=== PATIENT | male | born 1930 | race Caucasian/White ===

== ENCOUNTER 2016-09-19 16:00 | Emergency (ER) | payer MEDICARE, BC ==
[2016-09-19 17:00] LABS: BASOPHILS % (AUTO) 1 % (0-3); EOSINOPHILS % (AUTO) 2 % (0-9); HEMATOCRIT 32 % (39-53); MEAN CORPUSCULAR HGB CONC 32.4 gm/dl (32.0-36.0); MEAN CORPUSCULAR VOLUME 96 fL (80-100); MONOCYTES % (AUTO) 13.9 % (0-12); NEUTROPHILS % (AUTO) 64.1 % (37-80)
[2016-09-19 17:18] LABS: ALBUMIN 2.7 gm/dl (3.4-5.0)
[2016-09-19 17:23] VITALS: TEMP 98.2
[2016-09-19] MEDS ORDERED: FUROSEMIDE 100 MG SOL IV ONE (18:29)
[2016-09-19] MEDS ORDERED: FUROSEMIDE 20mg SOL ONE (18:30)
[2016-09-19] MEDS ORDERED: FUROSEMIDE 40 MG SOL ONE (18:30)
[2016-09-19] MEDS ORDERED: METOLAZONE 2.5 MG TAB PO SCH (18:30)
[2016-09-19 19:21] VITALS: BP 147/89; PULSE 68; RESP 18; O2SAT 98
== END 2016-09-19 19:18 | disposition short-term general hospital (02) | DRG 293 ==
LOC: ED 16:00
DX: I50.9 Heart failure, unspecified (principal); R06.02 Shortness of breath
CPT/HCPCS: 71010; 80053; 83880; 84484; 85025; 93005; 99285; J1940

== ENCOUNTER 2017-07-01 18:25 | Emergency (ER) | payer MEDICARE, BC ==
[2017-07-01 18:38] VITALS: BP 129/62; TEMP 98.6
[2017-07-01] MEDS ORDERED: ALBUTEROL/IPRATROPIUM 1 VIAL SOL ONE (18:47)
[2017-07-01] MEDS: ACETAMINOPHEN 325 MG PO ONE (18:50)
[2017-07-01] MEDS: ALBUTEROL NEB SOL 2.5MG/3ML 1 VIAL SOL NEB ONE (18:50)
[2017-07-01] MEDS: ALBUTEROL/IPRATROPIUM 1 VIAL SOL INH ONE (18:51)
[2017-07-01] MEDS ORDERED: SODIUM CHLORIDE 0.9% FLUSH 10 ML SOL IV PRN (18:51)
[2017-07-01] MEDS ORDERED: ACETAMINOPHEN 325 MG ONE (18:51)
[2017-07-01] MEDS: SODIUM CHLORIDE 0.9% 500 ML 500 ML IV ONE (18:52)
[2017-07-01 19:03] VITALS: PULSE 77; RESP 20; O2SAT 96
== END 2017-07-01 19:28 | disposition home or self-care (01) | DRG 203 ==
LOC: ED 18:25
DX: J45.909 Unspecified asthma, uncomplicated (principal)
CPT/HCPCS: 71045; 99282

== ENCOUNTER 2017-07-21 03:58 | Emergency (ER) | payer MEDICARE, BC ==
[2017-07-21 04:11] VITALS: TEMP 99.2
[2017-07-21] MEDS ORDERED: SODIUM CHLORIDE 0.9% FLUSH 10 ML SOL IV PRN (04:17)
[2017-07-21 04:22] LABS: BASOPHILS % (AUTO) 0 % (0-3); EOSINOPHILS % (AUTO) 2 % (0-9); HEMATOCRIT 31 % (39-53); HEMOGLOBIN 10.8 gm/dl (13.5-17.7); LYMPHOCYTES % (AUTO) 20.3 % (10-50); MEAN CORPUSCULAR HEMOGLOBIN 33.6 pg (27.0-32.0); MEAN CORPUSCULAR HGB CONC 35.1 gm/dl (32.0-36.0); MEAN CORPUSCULAR VOLUME 96 fL (80-100); MONOCYTES % (AUTO) 12.2 % (0-12); NEUTROPHILS % (AUTO) 65.5 % (37-80)
[2017-07-21 04:41] LABS: ALBUMIN 2.6 gm/dl (3.4-5.0); BILIRUBIN,TOTAL 0.6 mg/dl (0.2-1.0); CALCIUM 7.7 mg/dl (8.5-10.1); CARBON DIOXIDE 28.8 mEq/L (21-32); CREATININE 4.85 mg/dl (0.80-1.30); POTASSIUM 4.2 mMol/L (3.5-5.1); TOTAL PROTEIN 5.5 gm/dl (6.4-8.2)
[2017-07-21 04:44] VITALS: O2SAT 99
[2017-07-21 04:44] LABS: TROP I 0.061 ng/ml (0.000-0.056)
[2017-07-21 04:47] LABS: INR 1.02 (0.86-1.12)
[2017-07-21 06:30] VITALS: BP 128/84; PULSE 82; RESP 22
== END 2017-07-21 06:05 | disposition short-term general hospital (02) | DRG 310 ==
LOC: ED 03:58
DX: I48.91 Unspecified atrial fibrillation (principal); R06.02 Shortness of breath; R12 Heartburn
CPT/HCPCS: 36415; 71045; 80053; 82550; 83880; 84484; 85025; 85610; 85730; 93005; 99285; 99291

== ENCOUNTER 2017-08-27 13:07 | Emergency (ER) | payer MEDICARE, BC ==
[2017-08-27] MEDS ORDERED: NITROGLYCERIN 0.4 MG TAB SL PRN (13:11)
[2017-08-27] MEDS ORDERED: ASPIRIN 81 MG CHEWABLE CTB PO ONE (13:11)
[2017-08-27] MEDS ORDERED: NITROGLYCERIN 0.4 MG TAB SL ONE (13:20)
[2017-08-27 13:28] LABS: BASOPHILS % (AUTO) 0 % (0-3); EOSINOPHILS % (AUTO) 1 % (0-9); HEMATOCRIT 36 % (39-53); HEMOGLOBIN 11.4 gm/dl (13.5-17.7); LYMPHOCYTES % (AUTO) 17.55 % (10-50); MEAN CORPUSCULAR HEMOGLOBIN 32.4 pg (27.0-32.0); MEAN CORPUSCULAR HGB CONC 31.8 gm/dl (32.0-36.0); MONOCYTES % (AUTO) 11.7 % (0-12); NEUTROPHILS % (AUTO) 69.2 % (37-80)
[2017-08-27 13:31] LABS: MEAN CORPUSCULAR VOLUME 102 fL (80-100)
[2017-08-27] MEDS ORDERED: MORPHINE SULFATE 10 MG/ML SOL ONE ×2 (13:37→16:00)
[2017-08-27] MEDS ORDERED: MORPHINE SULFATE 10 MG/ML SOL IV ONE ×2 (13:46→16:00)
[2017-08-27] MEDS: SODIUM CHLORIDE 0.9% FLUSH 10 ML SOL IV PRN ×2 (13:50→16:02)
[2017-08-27 14:09] LABS: CALCIUM 7.9 mg/dl (8.5-10.1); CREATININE 2.94 mg/dl (0.80-1.30); POTASSIUM 3.9 mMol/L (3.5-5.1); TROP I 0.094 ng/ml (0.000-0.056)
[2017-08-27 14:14] LABS: CARBON DIOXIDE 35.4 mEq/L (21-32)
[2017-08-27 15:11] VITALS: TEMP 98.8
[2017-08-27 17:01] VITALS: BP 129/75; PULSE 70; RESP 18; O2SAT 98
== END 2017-08-27 16:40 | disposition short-term general hospital (02) | DRG 311 ==
LOC: ED 13:07
DX: I24.9 Acute ischemic heart disease, unspecified (principal); R06.00 Dyspnea, unspecified
CPT/HCPCS: 36415; 71045; 80048; 83880; 84484; 85025; 93005; 96374; 99284; 99285; J2270; A9270-GY

== ENCOUNTER 2017-09-24 17:29 | Emergency (ER) | payer MEDICARE, BC ==
[2017-09-24] MEDS ORDERED: MECLIZINE HYDROCHLORIDE 12.5 MG TAB ONE (19:18)
[2017-09-24] MEDS: MECLIZINE HYDROCHLORIDE 12.5 MG TAB PO ONE (19:20)
[2017-09-24 19:21] LABS: BASOPHILS % (AUTO) 1 % (0-3); EOSINOPHILS % (AUTO) 1 % (0-9); HEMATOCRIT 35 % (39-53); HEMOGLOBIN 11.6 gm/dl (13.5-17.7); LYMPHOCYTES % (AUTO) 21.3 % (10-50); MEAN CORPUSCULAR HGB CONC 32.7 gm/dl (32.0-36.0); MEAN CORPUSCULAR VOLUME 98 fL (80-100); MONOCYTES % (AUTO) 13.6 % (0-12); NEUTROPHILS % (AUTO) 63.6 % (37-80)
[2017-09-24 19:26] LABS: CALCIUM 8.1 mg/dl (8.5-10.1); CARBON DIOXIDE 28.2 mEq/L (21-32); CREATININE 3.53 mg/dl (0.80-1.30); INR 1.15 (0.86-1.12)
[2017-09-24] MEDS: SODIUM CHLORIDE 0.9% 250 ML 250 ML IV ONE (19:33)
[2017-09-24 20:43] VITALS: BP 151/85; PULSE 76; RESP 20; TEMP 97.6; O2SAT 95
== END 2017-09-24 20:59 | disposition home or self-care (01) | DRG 812 ==
LOC: ED 17:29
DX: T80.89XA Other complications following infusion, transfusion and therapeutic injection, initial encounter (principal); I16.1 Hypertensive emergency; I13.0 Hypertensive heart and chronic kidney disease with heart failure and stage 1 through stage 4 chronic kidney disease, or unspecified chronic kidney disease; E86.1 Hypovolemia; I95.9 Hypotension, unspecified; R51 Headache; N18.9 Chronic kidney disease, unspecified; I50.9 Heart failure, unspecified; Z99.2 Dependence on renal dialysis
CPT/HCPCS: 70450; 80048; 85025; 85610; 93005; 96365; 99284; 99285; A9270-GY

== ENCOUNTER 2017-10-27 19:48 | Emergency (ER) | payer MEDICARE, BC ==
[2017-10-27 20:06] VITALS: RESP 18; TEMP 98.6
[2017-10-27 20:35] VITALS: BP 128/71; PULSE 70; O2SAT 93
== END 2017-10-27 20:32 | disposition home or self-care (01) | DRG 881 ==
LOC: ED 19:48
DX: F32.9 Major depressive disorder, single episode, unspecified (principal)
CPT/HCPCS: 99282